=== PATIENT | female | born 1960 | race Caucasian/White ===

== ENCOUNTER 2016-04-17 16:30 | Emergency (ER) | payer OTHER ==
[~2016-04-17] VITALS: Ht 165.1 cm; Wt 82.2 kg
[2016-04-17 16:44] VITALS: TEMP 36.9; Ht 165.1 cm; Wt 82.2 kg
[2016-04-17] MEDS ORDERED: SODIUM CHLORIDE 0.9% 1000ML 1,000 ML IV STA (17:19)
[2016-04-17] MEDS ORDERED: MoRPHine SULFATE 4 MG/ML 1 ML CARP\\VIAL IV STA (17:19)
--- NOTE | 2016-04-17 17:31 | EMERGENCY ROOM VISIT NOTE ---
History First contact with patient: 17:12 Chief Complaint: FLANK PAIN Stated Complaint: SEVERE L FLANK PAIN, BLOOD IN URINE History of Present Illness The patient is a 55 year old female who presents to the Emergency Room with complaints of left flank pain. The patient states she developed severe left flank pain last night. She states the pain occasionally radiates to the abdomen. The pain is rated 8/10. She states the pain is constant but does seem to be worse when trying to get up out of the chair. The patient states that last week she noticed some discomfort in the muscles of her back and saw a masseuse. She states that she had blood in her urine today. She denies any fevers or chills. She denies any pain in her chest or trouble breathing. She denies any nausea or vomiting. She denies any urinary symptoms. She denies any falls or injuries. She denies any numbness, tingling or weakness in the lower extremities. Review of Systems A 10 system review of systems was completed with positives and pertinent negatives listed in the HPI. Past Medical/Surgical History Medical Problems: (1) Hyperlipidemia Social History Smoking Status: Never Smoker Housing Status: lives with family Occupation Status: employed Current/Historical Medications Scheduled Ascorbic Acid (Vitamin C), 1 TAB PO DAILY Bupropion (Wellbutrin-Xl), 300 MG PO DAILY Calcium Carbonate-Vitamin D W/ (Caltrate 600 Plus), 1 TAB PO DAILY Cephalexin Monohydrate (Keflex), 500 MG PO TID Darifenacin Hydrobromide (Enablex), 7.5 MG PO DAILY Fexofenadine Hcl (Keira Allergy), 1 TAB PO DAILY Fish Oil ([place]-3), 1 CAP PO DAILY Metaxalone (Skelaxin), 1 TAB PO TID Multivitamins/Minerals (Mvi With Minerals), 1 TAB PO DAILY Simvastatin (Zocor), 10 MG PO QPM Scheduled PRN Acyclovir (Zovirax), 200 MG PO 5 TIMES DAILY PRN for CLOD SORES Hydrocodone/Acetaminophen 5MG/325MG ([place] 5MG/325MG), 1 TABLET PO Q4H PRN for Pain Allergies Coded Allergies: No Known Allergies (Unverified , 04/17/16) Physical Exam Vital Signs Date Time Temp Pulse Resp B/P Pulse Ox O2 Delivery O2 Flow Rate FiO2 04/17/16 20:12 77 20 114/78 100 Room Air 04/17/16 18:47 65 151/79 96 04/17/16 16:44 36.9 72 18 157/76 96 Room Air Physical Exam VITALS: Vitals are noted on the nurse's note and reviewed by myself. Vital signs stable. The patient is afebrile. GENERAL: This is a 55-year-old female, in no acute distress, nondiaphoretic, well-developed well-nourished. SKIN: The skin was without rashes, erythema, edema, or bruising. There is no tenting of the skin. Capillary reflex less than 2 seconds. HEAD: Normocephalic atraumatic. EARS: The external ears are normal in appearance. EYES: Pupils equal round and reactive to light and accommodation. Conjunctivae without injection, sclerae without icterus. Extraocular movements intact. NOSE: Patent, turbinates without inflammation or discharge. MOUTH: Mucous membranes moist. Airway patent. Tongue does not deviate. NECK: Supple without nuchal rigidity. No lymphadenopathy. No thyromegaly. Cervical spine is nontender. No JVD. HEART: Regular rate and rhythm without murmurs gallops or rubs. LUNGS: Clear to auscultation bilaterally without wheezes, rales or rhonchi. No retractions or accessory muscle use. ABDOMEN: Positive bowel sounds x 4. Soft, nontender, without masses or organomegaly. MUSCULOSKELETAL: No muscle atrophy, erythema, or edema noted. Full range of motion without joint tenderness in all extremities. Normal gait. Strength 5/ 5 throughout. NEURO: Patient was alert and oriented to person place and time. No focal neurological deficits. Medical Decision & Procedures ER Provider Diagnostic Interpretation: [~ rep ct add3]] CT SCAN OF THE ABDOMEN AND PELVIS WITHOUT IV CONTRAST CLINICAL HISTORY: Left flank pain and hematuria. COMPARISON STUDY: No priors. TECHNIQUE: CT scan of the abdomen and pelvis is performed from the lung bases to the proximal femora. Images are reviewed in the axial, sagittal, and coronal planes. IV contrast was not administered for this examination as per the referring clinician. Automated dose control exposure was utilized. CT DOSE: 956.15 mGy.cm FINDINGS: Lung bases: The heart is normal in size and without pericardial effusion. The lung bases are clear noting dependent atelectasis. Liver: The unenhanced liver is normal in size, contour, and attenuation. There is no intrahepatic biliary ductal dilatation. There are 2 hepatic cysts measure up to 1.4 cm. Gallbladder: Unremarkable. Spleen: Normal in size and attenuation. Pancreas: Unremarkable. Adrenal glands: Unremarkable. Kidneys: The unenhanced kidneys are normal in size and without hydronephrosis. There are no renal calculi identified. There are 2 right renal cysts measuring up to 5.2 cm. Additional cortical hypodensities likely represent cysts but are too small for definitive characterization. Abdominal vasculature: The abdominal aorta is normal in course and caliber. Bowel: The small bowel and colon are normal in course and caliber. The appendix is well-visualized and normal. Peritoneum: There is no intraperitoneal free air or abdominal ascites. There is a small fat-containing umbilical hernia. Lymphadenopathy: None. Pelvic viscera: The bladder is normal as visualized. The uterus is surgically absent. No adnexal lesion is seen. Skeletal structures: Mild degenerative changes noted in the lumbar spine. No lytic or blastic lesions are seen. IMPRESSION: There are no acute infectious or inflammatory findings in the abdomen or pelvis. Laboratory Results 04/17/16 17:30 Red Blood Count 4.33, Mean Corpuscular Volume 93.8, Mean Corpuscular Hemoglobin 32.3, Mean Corpuscular Hemoglobin Concent 34.5, Mean Platelet Volume 9.6, Neutrophils (%) (Auto) 59.8, Lymphocytes (%) (Auto) 34.2, Monocytes (%) (Auto) 5.2, Eosinophils (%) (Auto) 0.4, Basophils (%) (Auto) 0.2, Neutrophils # (Auto) 5.08, Lymphocytes # (Auto) 2.91, Monocytes # (Auto) 0.44, Eosinophils # (Auto) 0.03, Basophils # (Auto) 0.02 04/17/16 17:30 Test 04/17/16 17:30 White Blood Count 8.50 K/uL (4.8-10.8) Red Blood Count 4.33 M/uL (4.2-5.4) Hemoglobin 14.0 g/dL (12.0-16.0) Hematocrit 40.6 % (37-47) Mean Corpuscular Volume 93.8 fL (80-100) Mean Corpuscular Hemoglobin 32.3 pg (25-34) Mean Corpuscular Hemoglobin Concent 34.5 g/dl (32-36) Platelet Count 239 K/uL (130-400) Mean Platelet Volume 9.6 fL (7.4-10.4) Neutrophils (%) (Auto) 59.8 % Lymphocytes (%) (Auto) 34.2 % Monocytes (%) (Auto) 5.2 % Eosinophils (%) (Auto) 0.4 % Basophils (%) (Auto) 0.2 % Neutrophils # (Auto) 5.08 K/uL (1.4-6.5) Lymphocytes # (Auto) 2.91 K/uL (1.2-3.4) Monocytes # (Auto) 0.44 K/uL (0.11-0.59) Eosinophils # (Auto) 0.03 K/uL (0-0.5) Basophils # (Auto) 0.02 K/uL (0-0.2) RDW Standard Deviation 43.4 fL (36.4-46.3) RDW Coefficient of Variation 12.6 % (11.5-14.5) Immature Granulocyte % (Auto) 0.2 % Immature Granulocyte # (Auto) 0.02 K/uL (0.00-0.02) Urine Color YELLOW Urine Appearance CLEAR (CLEAR) Urine pH 5.0 (4.5-7.5) Urine Specific [place] 1.000 (1.000-1.030) Urine Protein NEG (NEG) Urine Glucose (UA) NEG (NEG) Urine Ketones NEG (NEG) Urine Occult Blood TRACE (NEG) Urine Nitrite POS (NEG) Urine Bilirubin NEG (NEG) Urine Urobilinogen NEG (NEG) Urine Leukocyte Esterase SMALL (NEG) Urine WBC (Auto) 5-10 /hpf (0-5) Urine RBC (Auto) 0-4 /hpf (0-4) Urine Hyaline Casts (Auto) 1-5 /lpf (0-5) Urine Epithelial Cells (Auto) >30 /lpf (0-5) Urine Bacteria (Auto) 4+ (NEG) Anion Gap 9.0 mmol/L (3-11) Est Creatinine Clear Calc Drug Dose 74.9 ml/min Estimated GFR () 82.4 Estimated GFR (Non- 71.1 BUN/Creatinine Ratio 15.5 (10-20) Calcium Level 9.2 mg/dl (8.5-10.1) Total Bilirubin 0.7 mg/dl (0.2-1) Aspartate Amino Transf (AST/SGOT) 14 U/L (15-37) Alanine Aminotransferase (ALT/SGPT) 28 U/L (12-78) Alkaline Phosphatase 54 U/L (45-117) Total Protein 7.6 gm/dl (6.4-8.2) Albumin 4.7 gm/dl (3.4-5.0) Globulin 2.9 gm/dl (2.5-4.0) Albumin/Globulin Ratio 1.6 (0.9-2) Lipase 69 U/L (73-393) Medications Administered Medications (Trade) Dose Ordered Sig/Fernando Route Start Time Stop Time Status Last Admin Dose Admin Sodium Chloride (Nss 1000ml) 1,000 ml @ 999 mls/hr Q1H1M STAT IV 04/17/16 17:19 04/17/16 18:19 DC 04/17/16 17:19 999 MLS/HR Morphine Sulfate (MoRPHine SULFATE INJ) 4 mg NOW STAT IV 04/17/16 17:19 04/17/16 17:21 DC 04/17/16 17:35 4 MG Ketorolac Tromethamine (Toradol Inj) 30 mg NOW STAT IV 04/17/16 18:35 04/17/16 18:37 DC 04/17/16 18:47 30 MG Cephalexin Monohydrate (Keflex 500MG Home Pack) 1 homepack NOW ONCE PO 04/17/16 20:00 04/17/16 20:01 DC 04/17/16 20:03 1 HOMEPACK Acetaminophen/ Hydrocodone Bitart ([place] 5/325mg Home Pack) 1 homepack UD ONCE PO 04/17/16 20:00 04/17/16 20:01 DC 04/17/16 20:03 1 HOMEPACK ED Course The patient was seen and examined. Previous visits were reviewed. The patient does not have a fever or leukocytosis. She does not have any significant electrolyte abnormality. Lipase is not elevated. Urinalysis suggests urinary tract infection. CT scan was negative for nephrolithiasis or ureterolithiasis. The patient does have renal and hepatic cysts. She was advised of this and states the cysts are known. She was hydrated with normal saline. She was given 4 mg IV morphine with no significant improvement in her pain. She was given 30 mg IV Toradol with moderate improvement in her pain. The patient has pain in the left flank. This may be musculoskeletal in nature. She does not have any pain, numbness, tingling or weakness in the lower extremities. She does have a urine infection. Her pain could be secondary to the infection or possibly pyelonephritis. There is no evidence for kidney stone at this time. The patient will be placed on Keflex. She will be given a prescription for Skelaxin for muscle spasm. She'll also be given a prescription for [place] only as needed for severe discomfort. She should recheck with her family doctor later this week or early next week. She should return to the emergency Department with any worsening symptoms. The case was discussed with Dr. Joe who agrees with the assessment and treatment plan Medical Decision DIFFERENTIAL DIAGNOSIS: Hepatitis, cholecystitis, cholangitis, biliary colic, pancreatitis, pneumonia, subdiaphragmatic abscess, appendicitis, inguinal hernia , nephrolithiasis, inflammatory bowel disease, mesenteric adenitis, peptic ulcer disease, GERD, gastritis, pancreatitis, myocardial infarction, pericarditis, ruptured aortic aneurysm, appendicitis, gastroenteritis, bowel obstruction, splenic infarct, diverticulitis, mesenteric ischemia, metabolic, peritonitis, among others. Impression Primary Impression: Flank pain Additional Impression: Urinary tract infection Departure Information Dispostion Home / Self-Care Condition GOOD Prescriptions Cephalexin Monohydrate (Keflex) 500 Mg Cap 500 MG PO TID for 5 Days, #15 CAP Prov: Yennifer Costa PA-C 04/17/16 Metaxalone (Skelaxin) 800 Mg Tab 1 TAB PO TID for 10 Days, #30 TAB Prov: Yennifer Costa PA-C 04/17/16 Hydrocodone/Acetaminophen 5MG/325MG ([place] 5MG/325MG) Tab 1 TABLET PO Q4H Y for Pain, #10 TAB For Initial Treatment Prov: Yennifer Costa PA-C 04/17/16 Referrals Nehemias Parks M.D. (PCP) Patient Instructions Infecs Urinary Tract Women, [facility] Additional Instructions Motrin 600 mg every 6-8 hours or moderate pain Skelaxin every 8 hours as needed for muscle spasm Keflex every 8 hours for 5 days for urine infection You may try [place] for more severe pain only if no relief with the above medications. The Skelaxin and [place] are both sedating and taking both medications together can be increasingly sedating. Do not drive while taking those medications. Return with any fevers, worsening symptoms Otherwise, recheck with your family doctor by the end of the week Work Instructions Return To Work: 2 days Problem Qualifiers Additional Impression: Urinary tract infection Urinary tract infection type: acute cystitis Hematuria presence: with hematuria Qualified Codes: N30.01 - Acute cystitis with hematuria
[2016-04-17] MEDS ORDERED: OMEG10007 PO (17:36)
[2016-04-17] MEDS ORDERED: FEXO1TAB49 PO (17:36)
[2016-04-17] MEDS ORDERED: ASCO100T PO (17:36)
[2016-04-17] MEDS ORDERED: CALCTAB7 PO (17:36)
[2016-04-17] MEDS ORDERED: MULT-513 PO (17:36)
[2016-04-17] MEDS ORDERED: DARI7.5T PO (17:36)
[2016-04-17] MEDS ORDERED: BUPRTAB51 PO (17:36)
[2016-04-17] MEDS ORDERED: ACYC1CAP8 PO (17:36)
[2016-04-17] MEDS ORDERED: SIMV10TA2 PO (17:36)
[2016-04-17 17:42] LABS: BASO % 0.2 %; BASO ABS # 0.02 K/uL (0-0.2); COMPLETE YES; EOS % 0.4 %; HEMATOCRIT 40.6 % (37-47); IG% 0.2 %; LYMPH % 34.2 %; LYMPH ABS # 2.91 K/uL (1.2-3.4); MEAN CELL VOLUME 93.8 fL (80-100); MEAN CORPUSCULAR HEMOGLOBIN 32.3 pg (25-34); MEAN CORPUSCULAR HGB CONC 34.5 g/dl (32-36); MEAN PLATELET VOLUME 9.6 fL (7.4-10.4); MONO % 5.2 %; NEUT % 59.8 %; PLATELET COUNT 239 K/uL (130-400); RED BLOOD COUNT 4.33 M/uL (4.2-5.4)
[2016-04-17 17:59] LABS: URINE APPEARANCE CLEAR (CLEAR); URINE BILIRUBIN NEG (NEG); URINE COLOR YELLOW; URINE EPITHELIAL CELL AUTO >30 /lpf (0-5); URINE NITRITE POS (NEG); UROBILINOGEN NEG (NEG); ZZUR CULT IF INDIC CLEAN CATCH YES
[2016-04-17 18:04] LABS: MANUAL MICROSCOPIC REQUIRED? NO; REVIEW REQ? NO
[2016-04-17 18:08] LABS: BUN/CREATININE RATIO 15.5 (10-20); CALCIUM 9.2 mg/dl (8.5-10.1); CREATININE 0.92 mg/dl (0.60-1.20); POTASSIUM 3.4 mmol/L (3.5-5.1)
[2016-04-17 18:11] LABS: ALB/GLOB RATIO 1.6 (0.9-2)
--- NOTE | 2016-04-17 18:25 | DIAGNOSTIC IMAGING REPORT ---
CT SCAN OF THE ABDOMEN AND PELVIS WITHOUT IV CONTRAST CLINICAL HISTORY: Left flank pain and hematuria. COMPARISON STUDY: No priors. TECHNIQUE: CT scan of the abdomen and pelvis is performed from the lung bases to the proximal femora. Images are reviewed in the axial, sagittal, and coronal planes. IV contrast was not administered for this examination as per the referring clinician. Automated dose control exposure was utilized. CT DOSE: 956.15 mGy.cm FINDINGS: Lung bases: The heart is normal in size and without pericardial effusion. The lung bases are clear noting dependent atelectasis. Liver: The unenhanced liver is normal in size, contour, and attenuation. There is no intrahepatic biliary ductal dilatation. There are 2 hepatic cysts measure up to 1.4 cm. Gallbladder: Unremarkable. Spleen: Normal in size and attenuation. Pancreas: Unremarkable. Adrenal glands: Unremarkable. Kidneys: The unenhanced kidneys are normal in size and without hydronephrosis. There are no renal calculi identified. There are 2 right renal cysts measuring up to 5.2 cm. Additional cortical hypodensities likely represent cysts but are too small for definitive characterization. Abdominal vasculature: The abdominal aorta is normal in course and caliber. Bowel: The small bowel and colon are normal in course and caliber. The appendix is well-visualized and normal. Peritoneum: There is no intraperitoneal free air or abdominal ascites. There is a small fat-containing umbilical hernia. Lymphadenopathy: None. Pelvic viscera: The bladder is normal as visualized. The uterus is surgically absent. No adnexal lesion is seen. Skeletal structures: Mild degenerative changes noted in the lumbar spine. No lytic or blastic lesions are seen. IMPRESSION: There are no acute infectious or inflammatory findings in the abdomen or pelvis. Electronically signed by: Christiano Kaur M.D. 04/17/2016 6:23 PM Dictated Date/Time: 04/17/2016 6:18 PM
[2016-04-17] MEDS ORDERED: KETOROLAC TROMETHAMINE 30 MG/ML VIAL IV STA (18:35)
[2016-04-17] MEDS ORDERED: SKL800 PO (19:22)
[2016-04-17] MEDS ORDERED: HYDR-5688 PO (19:22)
[2016-04-17] MEDS ORDERED: CEPH500C PO (19:22)
[2016-04-17] MEDS ORDERED: CEPHALEXIN 500MG HOME PACK 1 EA BTL PO ONE (20:00)
[2016-04-17] MEDS ORDERED: NORCO 5/325MG HOME PACK PO ONE (20:00)
[2016-04-17 20:12] VITALS: BP 114/78; PULSE 77; O2SAT 100
--- NOTE | 2016-04-19 14:35 | Pharmacy Progress Note ---
ED Pharmacist Culture FollowUp Date of Service: Apr 19, 2016. Patient was sent home with a prescription for Keflex 500mg PO TID x 5 days, which should cover the E coli growing from the patient's URINE culture. No action required at this time.
== END 2016-04-17 20:13 | disposition home or self-care (01) ==
LOC: C.EDB 16:32 → C.EDC 20:13
DX: R10.9 Unspecified abdominal pain (principal); N30.01 Acute cystitis with hematuria; E78.5 Hyperlipidemia, unspecified; Z79.899 Other long term (current) drug therapy